=== PATIENT | female | born 1960 | race Caucasian/White ===

== ENCOUNTER → 2016-10-15 | Outpatient (CLI) | payer BC ==
[~2016-10-15] MED LIST: ALBUAER9 INH; CHOL1TAB12 PO; CLON1TAB3 PO; CYCL0.052 OP; INSDGI SC; LEVO125T7 PO; LEVO1TAB50 PO; MELA3TAB7 PO; NVLGI/PEN SQ; OMEG-112 PO; PSEU120C2 PO; RIZA10TA19 PO; SERT-234 PO; VALA1TAB2 PO; ZVRO EXT; [UNRECOGNIZED DRUG - CODE]; [UNRECOGNIZED DRUG - OTHER] PO
== END | disposition home or self-care (01) ==
LOC: C.LABSPEC 16:55
PROVIDERS: ATTEND Podiatrist Foot & Ankle Surgery
DX: L60.0 Ingrowing nail (principal)

== ENCOUNTER → 2017-01-20 | Outpatient (CLI) | payer BC ==
[2017-01-20 11:53] LABS: ALT/SGPT 32 U/L (12-78); AST/SGOT 21 U/L (15-37); BLOOD UREA NITROGEN 12 mg/dl (7-18); CALCIUM 9.4 mg/dl (8.5-10.1); CARBON DIOXIDE 30 mmol/L (21-32); CHLORIDE 100 mmol/L (98-107); CREATININE 0.81 mg/dl (0.60-1.20); GLUCOSE 197 mg/dl (70-99); POTASSIUM 4.5 mmol/L (3.5-5.1); SODIUM 137 mmol/L (136-145)
[2017-01-20 12:00] LABS: ESTIMATED AVERAGE GLUCOSE 160 mg/dl; HA1C FLAG Normal (Normal)
[2017-01-20 12:08] LABS: ALKALINE PHOSPHATASE 73 U/L (45-117); CHOLESTEROL 212 mg/dl (0-200); CHOLESTEROL/HDL RATIO 1.3; HDL CHOLESTEROL 165 mg/dl; LDL CHOLESTEROL CALCULATED 37 mg/dl; TRIGLYCERIDES 49 mg/dl (0-150); VERY LOW DENSITY LIPOPROT CALC 10 mg/dl
--- NOTE | 2017-01-27 10:58 | CODING QUERY MEDICAL NECESSITY ---
SUPPORTING DIAGNOSIS NEEDED A supporting diagnosis is required for the test/procedure performed on this patient in order for us to be reimbursed by the patient's insurance. Please provide a supporting diagnosis for the following test/procedure listed below next to the test name along with your signature. *If there is no additional diagnosis for this patient that would support the following test/procedure please document that below next to the test/procedure. Test(s)/Procedure(s) that require a supporting diagnosis: * VITAMIN D, 25- HYDROXY DIAGNOSIS: Provider Signature: Date: Thank you Silvia Esparza Viadeo Information Management Once completed, please kindly fax back to [phone] For questions please call [phone]
== END | disposition home or self-care (01) ==
LOC: C.LABBC 08:18
PROVIDERS: ATTEND Internal Medicine
DX: E10.9 Type 1 diabetes mellitus without complications (principal); E03.9 Hypothyroidism, unspecified

== ENCOUNTER → 2017-10-23 | Outpatient (CLI) | payer BC ==
--- NOTE | 2017-10-23 08:48 | DIAGNOSTIC IMAGING REPORT ---
L UPPER EXT JOINT WITHOUT CLINICAL HISTORY: L ELBOW PAIN pain. Trauma. TECHNIQUE: Multi axial MRI acquisition COMPARISON STUDY: None FINDINGS: Signal characteristics the osseous structures are in general unremarkable. There are findings of mild degenerative changes of the articular services. There is no significant loss of articular services. Surrounding musculature is intact. The medial collateral ligament complex is intact. The lateral collateral complex demonstrates a partial tear at its posterior margin. There appears to be a focal full-thickness thickness tear at its mid substance. There is no evidence for musculotendinous retraction. IMPRESSION: 1. General deterioration/maceration of the lateral collateral ligament complex. 2. There appears to be a focal full-thickness tear at its mid aspect and a partial tear at its posterior margin. 3. Mild degenerative changes of the articular services with no definite evidence for avascular necrosis or other abnormality. 4. All remaining components of the study are unremarkable. The above report was generated using voice recognition software. It may contain grammatical, syntax or spelling errors. Electronically signed by: Juan Pablo Monroe M.D. 10/23/2017 8:47 AM Dictated Date/Time: 10/23/2017 8:29 AM
== END | disposition home or self-care (01) ==
LOC: C.MRIBC 07:11
PROVIDERS: ATTEND Orthopaedic Surgery
DX: M25.522 Pain in left elbow (principal); M25.822 Other specified joint disorders, left elbow